=== PATIENT | female | born 1975 | race Caucasian/White ===

== ENCOUNTER → 2022-05-09 | Outpatient (CLI) | payer OTHER ==
--- NOTE | 2022-05-09 12:36 | Diagnostic Imaging Report ---
INDICATION: Back pain. Pain runs down left leg to foot. FINDINGS: Three views. The lumbosacral spine shows good alignment. Body height is well maintained throughout. There is narrowing of the disc space at L5-S1. No evidence of pars defects. Mild hypertrophic facet disease. There is a limbic vertebra noted at L4. Sacrum and coccyx are intact. Sacral foramina appear normal. IMPRESSION: Moderate degenerative disc and facet disease noted at L5-S1. Dictated by: Dictated on workstation # [id number]
--- NOTE | 2022-05-09 12:39 | Diagnostic Imaging Report ---
INDICATION: Severe back and pelvic pain. TECHNIQUE: Pelvis, AP and lateral views. FINDINGS: The SI joints and pubic symphysis are in good alignment. Minimal sclerotic changes are noted along the inferior aspect of the SI joints. The femoral heads show normal articulation. Good preservation of the joint space with smooth surfaces. No arthritic changes are seen. There are no fractures. No soft tissue calcifications about the hips. IMPRESSION: Normal pelvis. Dictated by: Dictated on workstation # [id number]
== END ==
LOC: RAD 11:56
PROVIDERS: ATTEND Chiropractor
DX: M47.27 Other spondylosis with radiculopathy, lumbosacral region (principal); M51.37 Other intervertebral disc degeneration, lumbosacral region
CPT/HCPCS: 72100; 72170

== ENCOUNTER → 2022-07-01 | Outpatient (RCR) | payer OTHER | END | disposition home or self-care (01) | PROVIDERS: ATTEND Nurse Practitioner Family | DX: M54.42 Lumbago with sciatica, left side (principal) ==

== ENCOUNTER 2022-07-22 12:27 | Outpatient (RCR) | payer OTHER | END 2022-08-01 | disposition home or self-care (01) | PROVIDERS: ATTEND Nurse Practitioner Family | DX: M54.42 Lumbago with sciatica, left side (principal) ==

== ENCOUNTER → 2022-08-09 | Outpatient (CLI) | payer OTHER ==
--- NOTE | 2022-08-09 10:20 | Diagnostic Imaging Report ---
CLINICAL INDICATION: Patient is having chronic low back pain which radiates down her left leg. EXAM: MRI of the lumbar spine performed without IV contrast. Sequences include sagittal T2, sagittal T1, sagittal T2 fat-sat, and axial T2. COMPARISON: X-ray lumbar spine dated 05/09/2022. FINDINGS: There is no acute lumbar spine fracture or dislocation. There are no significant Modic degenerative signal changes. There is a chronic Schmorl's node involving the upper anterior aspect of the L3 endplate. The visualized portions of the distal thoracic spinal cord, conus medullaris, and cauda equina nerve roots are unremarkable. The conus medullaris tip is seen at the lower L1 vertebral body level. There is no significant paraspinal soft tissue abnormality. There are mildly hypertrophic spurs involving the mid to lower lumbar spine. L1-L2: Unremarkable. L2-L3: There is mild diffuse disk bulge. There is mild bilateral facet arthropathy. There is no significant central spinal canal or neural foramen narrowing. L3-L4: There is diffuse disk bulge and mild bilateral facet arthropathy. There is mild central canal narrowing. There is mild bilateral neural foramen narrowing. L4-L5: There is mild diffuse disk bulge. There is a small disk herniation in the right foraminal region. There is mild to moderate right neural foramen narrowing and mild left neural foramen narrowing. There is no significant central canal stenosis. There is mild bilateral facet arthropathy. L5-S1: There is a diffuse disk bulge with superimposed posterior left paracentral disk protrusion/herniation. There is moderate loss of disk space height. There is encroachment upon the non-exited left S1 nerve root. There is mild to moderate central canal stenosis. There is no significant neural foramen narrowing. IMPRESSION: 1: There is an L5-S1 diffuse disk bulge with superimposed posterior right paracentral disk herniation which causes encroachment upon the non-exited left L5 nerve root and mild to moderate central canal narrowing. 2: There are diffuse disk bulges at the L2-L3, L3-L4, and L4-L5 levels which is described detailed above. Dictated by: Dictated on workstation # [id number]
== END ==
LOC: RAD 07:21
PROVIDERS: ATTEND Family Medicine
DX: M51.16 Intervertebral disc disorders with radiculopathy, lumbar region (principal); M51.17 Intervertebral disc disorders with radiculopathy, lumbosacral region; M48.07 Spinal stenosis, lumbosacral region
CPT/HCPCS: 72148

== ENCOUNTER 2022-08-18 09:15 | Outpatient (RCR) | payer OTHER | END 2022-08-31 | disposition home or self-care (01) | PROVIDERS: ATTEND Nurse Practitioner Family | DX: M54.42 Lumbago with sciatica, left side (principal) ==

== ENCOUNTER 2022-09-26 09:56 | Emergency (ER) | payer OTHER ==
[~2022-09-26] VITALS: Ht 160 cm; Wt 62.7 kg
[2022-09-26] MEDS ORDERED: KETOROLAC 15 MG/ML VIAL IM ONE (10:45)
--- NOTE | 2022-09-26 11:23 | Diagnostic Imaging Report ---
PROCEDURE: CT lumbar spine without contrast. TECHNIQUE: Multiple contiguous axial images were obtained through the lumbar spine without the use of intravenous contrast. Sagittal and coronal reformations were then performed. Auto Exposure Controls were utilized during the CT exam to meet ALARA standards for radiation dose reduction. INDICATION: Back pain and left lower extremity weakness. Axial imaging through the lumbar spine was performed without contrast. Sagittal and coronal reformations were also performed. There is mild left convexity lumbar scoliotic curvature. Vertebral body heights are well-maintained. No acute compression fracture is seen. There is a limbus vertebrae at L4. There is generalized degenerative disease with variable disc space narrowing. Bony canal is patent. Paraspinous tissues are unremarkable. IMPRESSION: Lumbar spondylosis. No acute bony abnormality is detected. Dictated by: Dictated on workstation # [id number]
--- NOTE | 2022-09-26 11:28 | ED Back Pain ---
General Chief Complaint: Back Problems Stated Complaint: LOWER BACK PAIN Nursing Triage Note: Pt c/o left sided back pain starting inocencia crow. Reports pain radiates down left leg. She reports she has been unable to walk. She has herniated discs in her back which she has been going to PT for. She took Tramadol 50mg this morning et Gabapentin. Also reports difficulty urinating this morning. Source of Information: Patient Exam Limitations: No Limitations History of Present Illness Date Seen by Provider: Sep 26, 2022 Time Seen by Provider: 11:15 Initial Comments 46-year-old female presents emergency department today for low back pain. She states overall she has been present since January when she was helping her move a dresser. It was tolerable and manageable and self last couple days when it has become severe. She states she is having weakness in her left leg, physically having to move the leg when she wanted to move. She also states that when she ambulates she has to bend over and leaning with flexion at the hips is the only comfortable position for her. No loss of bowel or bladder control or saddle anesthesia. No new injuries. She is taking tramadol, gabapentin without much relief. She did have an MRI a couple of months ago which showed couple changes in her lumbar spine per her report. Allergies and Home Medications Allergies Coded Allergies: aspirin (Verified Allergy, Unknown, 09/26/22) Patient Home Medication List Home Medication List Reviewed: Yes Review of Systems Constitutional: no symptoms reported EENTM: no symptoms reported Respiratory: no symptoms reported Cardiovascular: no symptoms reported Gastrointestinal: no symptoms reported Genitourinary: no symptoms reported Musculoskeletal: back pain, other (Left leg weakness) Skin: no symptoms reported Psychiatric/Neurological: No Symptoms Reported Past Ihpswwh-Lghesh-Hbcwww Hx Patient Social History Tobacco Use?: No Substance use?: No Alcohol Use?: No Pt feels they are or have been: No Immunizations Up To Date Influenza Vaccine Up-to-Date: No; Not Current First/Initial COVID19 Vaccinat: 04/30/21 Past Medical History Surgery/Hospitalization HX: cholecystectomy, partial hysterectomy, ganglion cyst removal chronic back problems IBSD Family Medical History Reviewed Nursing Family Hx No Pertinent Family Hx Physical Exam Vital Signs Vital Signs - First Documented 09/26/22 10:03 Temp 36.8 Pulse 80 Resp 16 B/P (MAP) 143/80 (101) Pulse Ox 96 O2 Delivery Room Air Capillary Refill : Less Than 3 Seconds Height, Weight, BMI Height: '" Weight: lbs. oz. kg; 24.00 BMI Method: General Appearance: Moderate Distress HEENT: PERRL/EOMI, Normal ENT Inspection, Pharynx Normal Neck: Normal Inspection, Non Tender, Supple Cardiovascular: Regular Rate, Rhythm, No Murmur, Normal Peripheral Pulses Respiratory: Chest Non Tender, Lungs Clear, Normal Breath Sounds, No Accessory Muscle Use Gastrointestinal: Normal Bowel Sounds, No Organomegaly, Non Tender, Soft Back: Normal Inspection, No CVA Tenderness, No Vertebral Tenderness Extremity: Normal Capillary Refill, Normal Inspection, Normal Range of Motion, No Calf Tenderness, No Pedal Edema, Other (Significant tenderness palpation of lumbar spine inferiorly. No step-offs or deformity. She has some weakness of her left leg extension. Reflexes are normal bilaterally.) Neurologic/Psychiatric: Alert, Oriented x3, Normal Mood/Affect, lens blocker II-XII Norm as Tested, Other (Weakness left lower extremity, 3/5 hip flexion) Skin: Normal Color, Warm/Dry Lymphatic: No Adenopathy Progress/Results/Core Measures Results/Orders My Orders Orders - CLAIREBALDEMAR Esposito DO Ketorolac Injection (Toradol Injection) (09/26/22 10:45) Ct Lumbar Spine Wo (09/26/22 10:42) Ed Iv/Invasive Line Start (09/26/22 11:49) Morphine Injection (Morphine Injection (09/26/22 11:49) Ondansetron Injection (Zofran Injectio (09/26/22 12:15) Medications Given in ED Current Medications Medications Dose Ordered Sig/Brendan Route Start Time Stop Time Status Last Admin Dose Admin Ketorolac Tromethamine 15 mg ONCE ONCE IM 09/26/22 10:45 09/26/22 10:46 DC 09/26/22 10:47 15 MG Ondansetron HCl 8 mg ONCE ONCE IVP 09/26/22 12:15 09/26/22 12:16 DC 09/26/22 12:13 8 MG Vital Signs/I&O 09/26/22 09/26/22 09/26/22 10:03 10:47 12:36 Temp 36.8 36.8 36.8 Pulse 80 80 Resp 16 16 B/P (MAP) 143/80 (101) 143/80 Pulse Ox 96 96 O2 Delivery Room Air Room Air Blood Pressure Mean: 101 Departure Communication (Admissions) Patient has significant left leg weakness. CT scanning here today is normal. MRI from 08/09 shows encroachment on the L5-S1 nerve root by disc bulge in this area. There is mild-moderate canal stenosis. She also has lesser disc bulges at L4-L5, L3-L4, L2-L3. Given the new onset of leg weakness I spoke with neurosurgery, Dr. Blake at [facility]. He recommends transfer to the ER for further evaluation and treatment. Patient is comfortable with plan of care. We will go and start an IV and give her pain medicines at this time. Pending callback from ER doctor for acceptance. Spoke with Dr. Daugherty who accepts the patient in admission. Patient is agreeable to private vehicle which I think is appropriate given the progressive nature of her symptoms and symptoms unlikely to be worsened by transport. Advised her to go straight to the ER, not to eat or drink anything in route. She states under standing. Impression Primary Impression: Left leg weakness Additional Impression: Central stenosis of spinal canal Disposition: [facility] Condition: Stable Departure-Patient Inst. Referrals: DARSHAN YUN DO (PCP) Primary Care Physician BALDEMAR RANGEL DO Sep 26, 2022 11:28
[2022-09-26] MEDS ORDERED: morphine INJ 10 MG/ML 1ML (SYR OR VIAL) IVP STA (11:49)
[2022-09-26] MEDS ORDERED: ONDANSETRON 4 MG/2 ML (SDV) Z0FRAN IVP ONE (12:15)
[2022-09-26 12:36] VITALS: BP 143/80
== END 2022-09-26 12:38 | disposition short-term general hospital (02) ==
LOC: EDUNIT# 09:56 → ER 09:59
DX: M48.07 Spinal stenosis, lumbosacral region (principal); Z88.5 Allergy status to narcotic agent; Z28.311 Partially vaccinated for COVID-19
CPT/HCPCS: 72131

== ENCOUNTER → 2022-11-14 | Outpatient (CLI) | payer OTHER ==
[2022-11-14 12:51] LABS: HEMATOCRIT 41 % (35-52); HEMOGLOBIN 14.1 g/dL (11.5-16.0); MEAN CORPUSCULAR HEMOGLOBIN 31 pg (25-34); MEAN CORPUSCULAR HGB CONC 34 g/dL (32-36); MEAN CORPUSCULAR VOLUME 91 fL (80-99); MEAN PLATELET VOLUME 9.8 fL (9.0-12.2); PLATELET COUNT 307 10^3/uL (130-400); WHITE BLOOD COUNT 8.7 10^3/uL (4.3-11.0)
[2022-11-14 13:04] LABS: POTASSIUM 3.6 MMOL/L (3.6-5.0)
[2022-11-14 13:05] LABS: CALCIUM 9.1 MG/DL (8.5-10.1)
[2022-11-14 13:09] LABS: CREATININE SERUM 0.75 MG/DL (0.60-1.30)
--- NOTE | 2022-11-14 13:12 | Diagnostic Imaging Report ---
INDICATION: Pain. FINDINGS: The 2 view chest is normal. The lungs are clear. There is no failure, effusion, or pneumothorax. IMPRESSION: Normal 2 view chest. Dictated by: Dictated on workstation # [id number]
[2022-11-14 13:19] LABS: BILIRUBIN,URINE NEGATIVE (NEGATIVE); CLARITY,URINE CLEAR; COLOR,URINE YELLOW; GLUCOSE, URINE (UA) NEGATIVE (NEGATIVE); KETONES,URINE 1+ (NEGATIVE); LEUKOCYTE ESTERASE ,URINE NEGATIVE (NEGATIVE); NITRITE,URINE NEGATIVE (NEGATIVE); PROTEIN,URINE NEGATIVE (NEGATIVE)
[2022-11-14 13:55] LABS: BACTERIA,URINE TRACE /HPF
== END ==
LOC: CARD 12:34
PROVIDERS: ATTEND Neurological Surgery
DX: M51.17 Intervertebral disc disorders with radiculopathy, lumbosacral region (principal)
CPT/HCPCS: 36415; 71046; 80048; 81000; 85027; 93005

== ENCOUNTER → 2023-09-11 | Outpatient (CLI) | payer BC, OTHER ==
--- NOTE | 2023-09-11 09:48 | Diagnostic Imaging Report ---
INDICATION: Palpitations COMPARISON: 11/14/2022 TECHNIQUE: 2 radiographs of the chest dated 09/11/2023 FINDINGS: The cardiac silhouette is within normal limits in size. No significant pulmonary vascular congestion. The lungs are clear. No pleural effusion. No pneumothorax. No acute osseous abnormality. IMPRESSION: Stable examination without acute cardiopulmonary abnormality. Dictated by: Dictated on workstation # [id number]
== END ==
LOC: CARD 08:55
PROVIDERS: ATTEND Nurse Practitioner Family
DX: R00.2 Palpitations (principal)
CPT/HCPCS: 71046; 93005